=== PATIENT | male | born 1935 | race Caucasian/White ===

== ENCOUNTER 2022-06-22 18:39 | Inpatient (IN) | payer OTHER ==
[~2022-06-22] VITALS: Ht 172.7 cm; Wt 68.0 kg
--- NOTE | 2022-06-22 19:10 | NUR ---
Patient BIB [facility] from home for c/o left hip pain. Per report from rescue, patient was using a step ladder at home to change time on wall clock and fell onto left hip. Patient denies head trauma or LOC. Arrived with 18G on left forearm A/Ox4. Patient states he fell about 1700 today.
--- NOTE | 2022-06-22 19:20 | NUR ---
Dr. Chavez at bedside for MSE.
[2022-06-22] MEDS ORDERED: HYDROMORPHONE 1 MG/1 ML DISP.SYRIN IV ONE ×2 (19:30→20:30)
[2022-06-22] MEDS ORDERED: ONDANSETRON 4 MG/2 ML VIAL IV ONE (19:30)
[2022-06-22] MEDS ORDERED: HYDROMORPHONE 1 MG/1 ML DISP.SYRIN ONE ×3 (19:31→23:52)
[2022-06-22] MEDS ORDERED: ONDANSETRON 4 MG/2 ML VIAL ONE (19:31)
[2022-06-22 19:51] LABS: CREATININE 1.1 mg/dL (0.6-1.3); POTASSIUM 3.9 mmol/L (3.5-5.1)
[2022-06-22 20:01] LABS: HEMATOCRIT 39.6 % (36.7-47.1); MEAN CORPUSCULAR HEMOGLOBIN 27.9 uug (23.8-33.4); MEAN CORPUSCULAR VOLUME 83.5 fL (73.0-96.2); PLATELET COUNT (AUTO) 155 K/uL (152-348)
[2022-06-22 20:03] LABS: BILIRUBIN,DIRECT 0.3 mg/dL (0.0-0.2); TOTAL PROTEIN, SERUM 6.9 g/dL (6.4-8.2)
[2022-06-22] MEDS ORDERED: IV LACTATED RINGERS SOLUTION 1,000 ML IV ONE (21:15)
--- NOTE | 2022-06-22 23:58 | NUR ---
Telephone call to [facility] to follow up on pt transfer and stated they are still working on it.
[2022-06-23] VITALS (7 sets, daily range): BP systolic 103–160; BP diastolic 54–69
[2022-06-23] MEDS ORDERED: HYDROMORPHONE 1 MG/1 ML DISP.SYRIN IV ONE (00:15)
--- NOTE | 2022-06-23 02:38 | NUR ---
Epic panel call placed, spoke to [facility] stated he will get a hold of Dr. Gutierrez for admitting.
[2022-06-23] MEDS ORDERED: ONDANSETRON 4 MG/2 ML VIAL IV PRN (02:45)
[2022-06-23] MEDS ORDERED: IV NS 1000 ML 1,000 ML IV SCH (02:45)
[2022-06-23] MEDS ORDERED: ACETAMINOPHEN 325 MG TABLET PO PRN (02:45)
[2022-06-23] MEDS ORDERED: hydrALAZINE HCL 20 MG/1 ML VIAL IV PRN (02:45)
[2022-06-23] MEDS ORDERED: MORPHINE SULFATE 2 MG/1 ML DISP.SYRIN IVP PRN (02:45)
[2022-06-23] MEDS ORDERED: ATOR40TA PO (02:54)
[2022-06-23] MEDS ORDERED: BISO5TAB21 PO (02:55)
[2022-06-23] MEDS ORDERED: TERA5CAP4 PO (02:55)
[2022-06-23] MEDS ORDERED: OMEP20TA5 PO (02:55)
[2022-06-23] MEDS ORDERED: ASPI81TA31 PO (02:55)
[2022-06-23] MEDS ORDERED: PSYL480P PO (02:55)
[2022-06-23] MEDS ORDERED: LISINOPRIL PO (02:55)
[2022-06-23] MEDS ORDERED: DOCU100C36 PO (02:55)
[2022-06-23] MEDS ORDERED: [UNRECOGNIZED DRUG - OTHER] PO (02:55)
[2022-06-23] MEDS ORDERED: POLY17PO4 PO (02:55)
--- NOTE | 2022-06-23 04:52 | NUR ---
Patient stable ambulate to br with assistance. BLE remains weak Continue care as per ARU.
--- NOTE | 2022-06-23 05:05 | NUR ---
Pt. admitted to [facility] room 311, under care of Dr. Gutierrez. Report given to VERENICE Dahl. Belongings List completed.
--- NOTE | 2022-06-23 07:58 | NUR ---
New admit from ED Pending possible surgery today. [facility] pt no bed available.
--- NOTE | 2022-06-23 07:59 | NUR ---
Awake, alert, oriented x 3, asking plan of surgery. Discussed plan of care. IVF infusing. Spoke with Dr. Patel, with orders for consent for IM Nailing left hip fracture, plan for today pending cardiac clearance. Dr. Jimenez and Dr. Shetty informed of cardiac clearance
[2022-06-23] MEDS ORDERED: ENALAPRILAT DIHYDRATE 1.25 MG/1 ML VIAL IV PRN (09:00)
[2022-06-23] MEDS ORDERED: HEPARIN SODIUM,PORCINE 5,000 UNITS/ML VIAL SQ SCH (09:00)
[2022-06-23] MEDS: PANTOPRAZOLE SODIUM 40 MG VIAL IV SCH (09:38)
[2022-06-23] MEDS ORDERED: VANCOMYCIN 1000 MG VIAL ONE (11:25)
--- NOTE | 2022-06-23 12:16 | NUR ---
Echocardiogram done. Cardiac clearance done. Consent for IM Nailing Left Femur Fracture signed by patient. Son at bedside, supportive. Dentures and watch removed, left at bedside.
--- NOTE | 2022-06-23 12:31 | NUR ---
To OR by bed
[2022-06-23] MEDS ORDERED: HYDROMORPHONE 2 MG/1 ML DISP.SYRIN ONE (12:55)
[2022-06-23] MEDS ORDERED: IV D5W-0.45% NS +20 KCL 1,000 ML IV ONE (15:07)
--- NOTE | 2022-06-23 15:40 | NUR ---
Received this S/P IM Nailing left hip fracture by bed. Awake, alert oriented x4. Vital signs taken and recorded. O2 at 4L/NC with O2 sat of 95%. IVF infusing. Left hip dressing clean and dry. Ice pack applied. Voided freely using the urinal. Started on sips of water and clear liquid, tolerated
[2022-06-23] MEDS: IV D5W-0.45% NS +20 KCL 1,000 ML IV PRN (15:47)
--- NOTE | 2022-06-23 18:33 | NUR ---
Regular diet served, tolerated. IVF infusing. Denies pain.
[2022-06-23] MEDS ORDERED: KETOROLAC TROMETHAMINE 30 MG INJ IM ONE (19:08)
[2022-06-23] MEDS ORDERED: LIDOCAINE-MPF 2% 5 ML VIAL IJ ONE (19:08)
[2022-06-23] MEDS ORDERED: ONDANSETRON 4 MG/2 ML VIAL IV ONE (19:08)
[2022-06-23] MEDS ORDERED: PROPOFOL 200 MG/20 ML BOTTLE IV ONE (19:08)
[2022-06-23] MEDS ORDERED: CEFAZOLIN 1 G VIAL IM ONE (19:08)
[2022-06-23] MEDS ORDERED: SEVOFLURANE 250 ML BOTTLE IH ONE (19:08)
[2022-06-23] MEDS ORDERED: DEXAMETHASONE SOD PHOSPHATE 4 MG INJ IV ONE (19:08)
[2022-06-23] MEDS: CEFAZOLIN 1 G in IV DEXTROSE 5% 50 ML IV SCH (21:46)
[2022-06-24 04:00] VITALS: BP 105/46
[2022-06-24] MEDS: IV D5W-0.45% NS +20 KCL 1,000 ML IV PRN ×2 (05:17→18:54)
[2022-06-24] MEDS: CEFAZOLIN 1 G in IV DEXTROSE 5% 50 ML IV SCH (05:18)
[2022-06-24 06:32] LABS: HEMATOCRIT 30.4 % (36.7-47.1); MEAN CORPUSCULAR HEMOGLOBIN 28.9 uug (23.8-33.4); MEAN CORPUSCULAR VOLUME 83.1 fL (73.0-96.2); PLATELET COUNT (AUTO) 113 K/uL (152-348)
[2022-06-24 07:03] LABS: BILIRUBIN,TOTAL 1.5 mg/dL (0.2-1.0); CREATININE 1.1 mg/dL (0.6-1.3); PHOSPHOROUS 2.7 mg/dL (2.5-4.9); POTASSIUM 4.3 mmol/L (3.5-5.1); TOTAL PROTEIN, SERUM 5.6 g/dL (6.4-8.2)
--- NOTE | 2022-06-24 07:31 | NUR ---
Patient stable Dressing to left thigh D/I Encouraged with IS Pulling 1250 mls. PIV infusing site satisfactory.
--- NOTE | 2022-06-24 08:00 | NUR ---
resting in bed with O2 at 4l/nc- denies of pain, surgical incisions covered with foam dressing- dry and intact, explained plan of care- verbalized understanding, dvt pumps bilateral noted, safety measures maintained, call light within reach
[2022-06-24] MEDS: PANTOPRAZOLE SODIUM 40 MG VIAL IV SCH (08:51)
[2022-06-24 12:02] VITALS: BP 140/53
[2022-06-24] MEDS: HEPARIN SODIUM,PORCINE 5,000 UNITS/ML VIAL SQ SCH (12:04)
--- NOTE | 2022-06-24 14:00 | NUR ---
seen by PT for eval- see notes
[2022-06-24 15:26] LABS: THYROID STIMULATING HORMONE 0.975 mIU/mL (0.358-3.740)
[2022-06-24 16:51] VITALS: BP 128/50
--- NOTE | 2022-06-24 17:53 | NUR ---
resting in bed, no distress noted, needs attended and met, call light within reach
[2022-06-24 20:00] VITALS: BP 169/85
[2022-06-25] MEDS: HEPARIN SODIUM,PORCINE 5,000 UNITS/ML VIAL SQ SCH ×3 (01:00→21:39)
[2022-06-25] MEDS: MORPHINE SULFATE 2 MG/1 ML DISP.SYRIN IVP PRN ×2 (01:05→06:30)
[2022-06-25 04:00] VITALS: BP 170/76
--- NOTE | 2022-06-25 06:53 | NUR ---
MEDICATED FOR PAIN X2 ALERTX 4 DRESSING TO LEFT HIP INTACT IVF HEP LOCK PER ORDER TOLERATING PO.O2 TO 2 LITRES
[2022-06-25 07:02] LABS: HEMATOCRIT 30.1 % (36.7-47.1); MEAN CORPUSCULAR HEMOGLOBIN 28.5 uug (23.8-33.4); MEAN CORPUSCULAR VOLUME 82.6 fL (73.0-96.2); PLATELET COUNT (AUTO) 113 K/uL (152-348)
[2022-06-25 07:12] LABS: MAGNESIUM 1.4 mg/dL (1.8-2.4); PHOSPHOROUS 1.9 mg/dL (2.5-4.9); POTASSIUM 3.9 mmol/L (3.5-5.1)
[2022-06-25] MEDS: MAGNESIUM SULFATE/D5W 100 ML IV SCH ×2 (08:06→09:59)
[2022-06-25] MEDS: PANTOPRAZOLE SODIUM 40 MG VIAL IV SCH (08:17)
[2022-06-25] MEDS: IV D5W-0.45% NS +20 KCL 1,000 ML IV PRN (10:05)
[2022-06-25 11:46] VITALS: BP 146/66
[2022-06-25] MEDS ORDERED: SODIUM PHOSPHATE MM 15 MMOL in IV NORMAL SALINE 250 ML IV ONE (16:00)
[2022-06-25 16:03] VITALS: BP 134/71
--- NOTE | 2022-06-25 17:59 | NUR ---
Pt. noted to be stable during the shift and no acute distress noted. All need attended and met. Compliance with the care given. Able to make the need known. No c/o pain or discomfort. Will keep monitoring the resident.
[2022-06-25 20:00] VITALS: BP 146/67
[2022-06-25] MEDS ORDERED: hydrALAZINE HCL 25 MG TABLET PO PRN (20:30)
[2022-06-25] MEDS: TERAZOSIN 5 MG CAPSULE PO SCH (21:38)
[2022-06-25] MEDS: LISINOPRIL 5 MG TABLET PO SCH (21:38)
[2022-06-26 04:00] VITALS: BP 108/62
[2022-06-26] MEDS: PANTOPRAZOLE SODIUM 40 MG TABLET.DR PO SCH (06:21)
[2022-06-26 06:33] LABS: HEMATOCRIT 26.4 % (36.7-47.1); MEAN CORPUSCULAR HEMOGLOBIN 28.8 uug (23.8-33.4); MEAN CORPUSCULAR VOLUME 82.5 fL (73.0-96.2); PLATELET COUNT (AUTO) 107 K/uL (152-348)
[2022-06-26 06:48] LABS: BILIRUBIN,TOTAL 1.8 mg/dL (0.2-1.0); CREATININE 0.9 mg/dL (0.6-1.3); MAGNESIUM 1.9 mg/dL (1.8-2.4); PHOSPHOROUS 2.7 mg/dL (2.5-4.9); POTASSIUM 3.9 mmol/L (3.5-5.1); TOTAL PROTEIN, SERUM 5.3 g/dL (6.4-8.2)
[2022-06-26] MEDS: HEPARIN SODIUM,PORCINE 5,000 UNITS/ML VIAL SQ SCH ×2 (09:12→21:41)
[2022-06-26] MEDS: LISINOPRIL 5 MG TABLET PO SCH ×2 (09:13→21:44)
[2022-06-26] MEDS: HYDROCODONE/APAP 10-325 MG TABLET PO PRN ×3 (09:27→21:45)
[2022-06-26 10:57] VITALS: BP 115/69
[2022-06-26 15:13] VITALS: BP 114/59
[2022-06-26] MEDS ORDERED: CALC1TAB30 PO (16:08)
[2022-06-26] MEDS ORDERED: ACET325T53 PO (16:09)
[2022-06-26 19:57] VITALS: BP 137/72
[2022-06-26] MEDS: TERAZOSIN 5 MG CAPSULE PO SCH (21:44)
[2022-06-27 04:50] VITALS: BP 139/61
[2022-06-27] MEDS: PANTOPRAZOLE SODIUM 40 MG TABLET.DR PO SCH (06:33)
== END 2022-06-27 10:00 | disposition home health service (06) | DRG 481 ==
LOC: ER 18:41 → MEDSURG3 06-23 02:53
PROVIDERS: ADMIT Internal Medicine; ATTEND Internal Medicine
PROC: 0QS706Z Reposition Left Upper Femur with Intramedullary Internal Fixation Device, Open Approach (ICD-10-PCS; principal; 2022-06-23)
DX: S72.142A Displaced intertrochanteric fracture of left femur, initial encounter for closed fracture (principal); D68.59 Other primary thrombophilia; E44.0 Moderate protein-calorie malnutrition; W11.XXXA Fall on and from ladder, initial encounter; Z95.2 Presence of prosthetic heart valve; D64.9 Anemia, unspecified; E78.5 Hyperlipidemia, unspecified; E83.39 Other disorders of phosphorus metabolism; E83.42 Hypomagnesemia; E88.09 Other disorders of plasma-protein metabolism, not elsewhere classified; Z20.822 Contact with and (suspected) exposure to COVID-19; Z87.891 Personal history of nicotine dependence; Z68.22 Body mass index [BMI] 22.0-22.9, adult; I10 Essential (primary) hypertension; Z74.09 Other reduced mobility; Y93.9 Activity, unspecified; Y92.009 Unspecified place in unspecified non-institutional (private) residence as the place of occurrence of the external cause; R93.1 Abnormal findings on diagnostic imaging of heart and coronary circulation; N40.0 Benign prostatic hyperplasia without lower urinary tract symptoms
CPT/HCPCS: 36415; 71045; 73030; 73502; 73503; 83550; 83735; 84100; 84443; 85025; 85730; 93005; 93307; A4649; A4663; A6209; C1713; C9113; G0378; J0360; J0690; J1100; J1170; J1644; J1885; J2270; J2405; J3370; J3475; J3490; J7040; J7120